=== PATIENT | female | born 1970 | race Hispanic/Latino ===

== ENCOUNTER 2022-05-15 11:11 | Outpatient (CLI) | payer BC | END 2022-05-15 11:12 | disposition home or self-care (01) | LOC: CSHLAB 11:11 | PROVIDERS: ATTEND Internal Medicine Gastroenterology | DX: Z20.822 Contact with and (suspected) exposure to COVID-19 (principal) | CPT/HCPCS: 87811 ==

== ENCOUNTER 2022-05-20 10:52 | Day surgery (SDC) | payer BC ==
[2022-05-16 11:55] VITALS: BMI 21.0
[2022-05-20] MEDS ORDERED: PROPOFOL 40 ML ONE (10:54)
[2022-05-20] MEDS ORDERED: Lidocaine 2% MPF 10 ML AMP (For Epidural Use) ONE (10:54)
[2022-05-20] MEDS ORDERED: Lidocaine 1% MPF 2 ML VIAL ONE (11:01)
[2022-05-20] MEDS ORDERED: Hydrocortisone Sod Succ/PF 100 mg/2 ml Vial ONE (11:50)
== END 2022-05-20 13:00 | disposition home or self-care (01) ==
LOC: CSHSDC 10:52
PROVIDERS: ATTEND Internal Medicine Gastroenterology
PROC: 0DJD8ZZ Inspection of Lower Intestinal Tract, Via Natural or Artificial Opening Endoscopic (ICD-10-PCS; principal; 2022-05-20)
DX: Z12.11 Encounter for screening for malignant neoplasm of colon (principal); I12.9 Hypertensive chronic kidney disease with stage 1 through stage 4 chronic kidney disease, or unspecified chronic kidney disease; N18.9 Chronic kidney disease, unspecified; Z86.718 Personal history of other venous thrombosis and embolism; Z90.710 Acquired absence of both cervix and uterus; Z20.822 Contact with and (suspected) exposure to COVID-19
CPT/HCPCS: J1720; J2704